=== PATIENT | male | born 1960 | race Caucasian/White ===

== ENCOUNTER → 2017-02-23 | Outpatient (CLI) | payer OTHER | END | disposition short-term general hospital (02) | LOC: CLORTH 10:38 | DX: S83.222A Peripheral tear of medial meniscus, current injury, left knee, initial encounter (principal) ==

== ENCOUNTER 2017-03-09 06:37 | Day surgery (SDC) | payer OTHER ==
[~2017-03-09] VITALS: Ht 180.3 cm; Wt 95.8 kg
== END 2017-03-09 11:30 | disposition short-term general hospital (02) ==
LOC: SURGOP 06:37
PROC: 0SBD4ZZ Excision of Left Knee Joint, Percutaneous Endoscopic Approach (ICD-10-PCS; principal; 2017-03-09)
DX: S83.232A Complex tear of medial meniscus, current injury, left knee, initial encounter (principal); I10 Essential (primary) hypertension; E78.5 Hyperlipidemia, unspecified; K21.9 Gastro-esophageal reflux disease without esophagitis; J43.9 Emphysema, unspecified; M19.90 Unspecified osteoarthritis, unspecified site; Z87.891 Personal history of nicotine dependence; Z79.1 Long term (current) use of non-steroidal anti-inflammatories (NSAID); Z79.82 Long term (current) use of aspirin; Z79.899 Other long term (current) drug therapy; Z98.890 Other specified postprocedural states; Y99.0 Civilian activity done for income or pay
CPT/HCPCS: J0690; J2250; J2270; J2405; J2795; J3010

== ENCOUNTER → 2017-03-23 | Outpatient (CLI) | payer OTHER | END | disposition short-term general hospital (02) | LOC: CLORTH 08:22 | DX: Z47.89 Encounter for other orthopedic aftercare (principal); Z98.890 Other specified postprocedural states ==